=== PATIENT | male | born 1955 | race Caucasian/White ===

== ENCOUNTER 2017-03-06 09:39 | Outpatient (CLI) | payer BC ==
[2017-03-06 10:20] LABS: BASOPHILS % (AUTO) 0.4 % (0.0-2.0); EOSINOPHILS # (AUTO) 0.1 /CMM (0.0-0.7); HEMATOCRIT 42 % (39-51); HEMOGLOBIN 13.3 g/dL (13.5-17.5); LYMPHOCYTES # (AUTO) 1.9 /CMM (0.8-4.8); MEAN CORPUSCULAR HEMOGLOBIN 25 PG (26.0-33.0); MEAN CORPUSCULAR HGB CONC 32 g/dl (31.0-36.0); MEAN CORPUSCULAR VOLUME 79 fL (80-96); MONOCYTES # (AUTO) 0.3 /CMM (0.1-1.30); NEUTROPHILS # (AUTO) 2.9 /CMM (1.8-8.9); PLATELET COUNT (AUTO) 235 /CMM (150-450); RED BLOOD CELL COUNT(AUTO) 5.31 MIL/uL (4.5-6.0); WHITE BLOOD COUNT (AUTO) 5.2 K/uL (4.3-11.0)
[2017-03-06 10:22] LABS: APPEARANCE,URINE CLEAR (CLEAR); BILIRUBIN,URINE NEGATIVE (NEGATIVE); BLOOD, URINE TRACE-INTA Ery/uL (NEGATIVE); COLOR,URINE YELLOW (YELLOW); KETONES,URINE NEGATIVE (NEGATIVE); LEUKOCYTE ESTERASE ,URINE NEGATIVE (NEGATIVE); NITRITE, URINE NEGATIVE (NEGATIVE); PROTEIN,URINE NEGATIVE (NEGATIVE); UGLUCOSE NEGATIVE (NEGATIVE); UROBILINOGEN,URINE 0.2 EU/dL (0.2)
[2017-03-06 10:35] LABS: ALBUMIN 3.5 g/dL (3.4-5.0); BILIRUBIN,TOTAL 0.2 mg/dL (0.2-1.0); CALCIUM, SERUM 8.7 mg/dL (8.5-10.1); CREATININE 0.9 mg/dL (0.6-1.3); POTASSIUM 4.4 mmol/L (3.5-5.1); TOTAL PROTEIN, SERUM 7.4 g/dL (6.4-8.2)
[2017-03-06 10:48] LABS: FREE PSA 0.2 ng/mL (0.00-45); PROSTATE SPECIFIC ANTIGEN SCR 1.23 ng/mL (0.00-4.00); THYROID STIMULATING HORMONE 1.601 uIU/mL (0.358-3.74)
[2017-03-06 13:38] LABS: EOSINOPHILS % (AUTO) 1.7 % (0.0-6.0); LYMPHOCYTES % (AUTO) 36.6 % (20.0-44.0); MONOCYTES % (AUTO) 6.3 % (2.0-12.0); RDW COEFFICIENT OF VARIATION 15.4 (11.5-15.0)
[2017-03-06 13:45] LABS: BACTERIA,URINE Few /HPF (None Seen); RBC,URINE 0-2 /HPF (0-2); SQUAMOUS EPITHELIAL CELL,UR None Seen /HPF (None Seen); WBC,URINE NONE SEEN /HPF (0-3)
== END 2017-03-06 23:59 | disposition home or self-care (01) ==
LOC: LAB 09:39
PROVIDERS: ATTEND Family Medicine
DX: Z00.01 Encounter for general adult medical examination with abnormal findings (principal); Z11.59 Encounter for screening for other viral diseases; Z12.5 Encounter for screening for malignant neoplasm of prostate; R06.09 Other forms of dyspnea
CPT/HCPCS: 36415; 71020-TC; 80053-TC; 80061-TC; 81000-TC; 84153-TC; 84154-TC; 84439-TC; 84443-TC; 85025-TC; 86803

== ENCOUNTER 2017-03-18 10:28 | Outpatient (CLI) | payer BC ==
[2017-03-19 16:16] LABS: H. PYLORI AB IgA 17.5 units (0.0-8.9)
== END 2017-03-18 23:59 | disposition home or self-care (01) ==
LOC: LAB 10:28
PROVIDERS: ATTEND Family Medicine
DX: D64.9 Anemia, unspecified (principal); R14.0 Abdominal distension (gaseous)
CPT/HCPCS: 36415; 86677

== ENCOUNTER 2017-03-20 09:30 | Outpatient (CLI) | payer BC | END 2017-03-20 23:59 | disposition home or self-care (01) | LOC: US 09:30 | PROVIDERS: ATTEND Family Medicine | DX: R10.11 Right upper quadrant pain (principal) | CPT/HCPCS: 76770-TC; 82272-TC ==

== ENCOUNTER 2017-08-30 11:04 | Outpatient (CLI) | payer BC ==
[2017-08-30 12:18] LABS: BASOPHILS % (AUTO) 0.4 % (0.0-2.0); EOSINOPHILS # (AUTO) 0.1 /CMM (0.0-0.7); EOSINOPHILS % (AUTO) 2.2 % (0.0-6.0); HEMATOCRIT 41 % (39-51); HEMOGLOBIN 13.4 g/dL (13.5-17.5); LYMPHOCYTES # (AUTO) 1.6 /CMM (0.8-4.8); LYMPHOCYTES % (AUTO) 33.2 % (20.0-44.0); MEAN CORPUSCULAR HEMOGLOBIN 25 PG (26.0-33.0); MEAN CORPUSCULAR HGB CONC 33 g/dl (31.0-36.0); MEAN CORPUSCULAR VOLUME 77 fL (80-96); MONOCYTES # (AUTO) 0.3 /CMM (0.1-1.30); MONOCYTES % (AUTO) 6.5 % (2.0-12.0); NEUTROPHILS # (AUTO) 2.8 /CMM (1.8-8.9); NEUTROPHILS % (AUTO) 57.7 % (43.0-81.0); PLATELET COUNT (AUTO) 262 /CMM (150-450); RDW COEFFICIENT OF VARIATION 15.5 (11.5-15.0); RED BLOOD CELL COUNT(AUTO) 5.32 MIL/uL (4.5-6.0); WHITE BLOOD COUNT (AUTO) 4.9 K/uL (4.3-11.0)
[2017-08-30 12:23] LABS: ALBUMIN 3.5 g/dL (3.4-5.0); BILIRUBIN,TOTAL 0.2 mg/dL (0.2-1.0); CALCIUM, SERUM 8.9 mg/dL (8.5-10.1); TOTAL PROTEIN, SERUM 7.8 g/dL (6.4-8.2)
[2017-08-30 12:35] LABS: PROSTATE SPECIFIC ANTIGEN SCR 1.47 ng/mL (0.00-4.00)
[2017-09-02 15:10] LABS: OCCULT BLOOD STOOL NEGATIVE (NEGATIVE)
[2017-09-02 15:10] LABS: OCCULT BLOOD STOOL NEGATIVE (NEGATIVE)
[2017-09-02 20:44] LABS: OCCULT BLOOD STOOL NEGATIVE (NEGATIVE)
== END 2017-08-30 23:59 | disposition home or self-care (01) ==
LOC: LAB 11:04
PROVIDERS: ATTEND Family Medicine
DX: D64.9 Anemia, unspecified (principal); R97.20 Elevated prostate specific antigen [PSA]
CPT/HCPCS: 36415; 80053-TC; 82272-TC; 82728-TC; 82746; 83540-TC; 84153-TC; 85025-TC

== ENCOUNTER 2017-09-23 11:23 | Outpatient (CLI) | payer BC ==
[2017-09-23 13:13] LABS: CALCIUM, SERUM 8.8 mg/dL (8.5-10.1); CREATININE 0.9 mg/dL (0.6-1.3)
== END 2017-09-23 23:59 | disposition home or self-care (01) ==
LOC: LAB 11:23
PROVIDERS: ATTEND Family Medicine
DX: R73.9 Hyperglycemia, unspecified (principal)
CPT/HCPCS: 36415; 80048-TC; 80061-TC

== ENCOUNTER 2018-01-10 08:50 | Outpatient (CLI) | payer BC ==
[2018-01-10 11:56] LABS: CHOLESTEROL 225 mg/dL (<200); HDL CHOLESTEROL 77 mg/dL (40-60); LDL 138 mg/dL (0-99); TRIGLYCERIDES 46 mg/dL (30-150)
== END 2018-01-10 23:59 | disposition home or self-care (01) ==
LOC: LAB 08:50
PROVIDERS: ATTEND Family Medicine
DX: E78.2 Mixed hyperlipidemia (principal)
CPT/HCPCS: 36415; 80061-TC